=== PATIENT | female | born 1990 | race Caucasian/White ===

== ENCOUNTER 2017-11-23 03:54 | Inpatient (IN) | payer BC, OTHER ==
[2017-11-23] MEDS ORDERED: Metoclopramide 10 MG/2 ML SDV IVPUSH ONE (04:33)
[2017-11-23] MEDS ORDERED: Sodium Chloride 0.9% 10 ML Syringe FLUSH PRN ×2 (04:33→07:38)
[2017-11-23] MEDS ORDERED: Citric Acid/Sodium Citrate Solution 30 ML Cup PO ONE (04:33)
[2017-11-23] MEDS ORDERED: Ampicillin 2 GM in Sodium Chloride 0.9% 100 ML IV ONE (04:42)
[2017-11-23] MEDS ORDERED: Oxytocin/Lactated Ringers 10 UNIT/1,000 ML BAG IV SCH (04:45)
[2017-11-23] MEDS ORDERED: Lactated Ringers 1,000 ML IV SCH (04:45)
--- NOTE | 2017-11-23 05:59 | PCM.LDHP ---
L&D History of Present Illness - General Date of Service: 11/23/17 Admit Problem/Dx: Patient Status Order with Admit Dx/Problem 11/23/17 04:33 Patient Status [ADT] Routine Admission Diagnosis/Problem Admission Diagnosis/Problem Source of Information: Patient History Limitations: Reports: No Limitations - History of Present Illness Introduction:: 27-year-old 001 [place] 12/06/17 presently at 38 weeks and 2 days estimated gestational age presented to labor and delivery after spontaneous rupture membranes at 0245 hours clear fluid irregular contractions. GBS negative. Blood type B positive. Antibody screen negative. Initial hemoglobin hematocrit 14.2/ 41.106/19/17. Rubella titer indicates immunity. Syphilis screen negative. Hepatitis B surface antigen nonreactive negative HIV negative Chlamydia probe negative GC probe -1 hour OB glucose screen 130. 3 hour glucose tolerance test normal. Patient has had no problems during this except repeat section which had been planned for 11/30/17. Has been seeing Dr. Cartwright. Improves with: Reports: None Worsens with: Reports: None Associated Symptoms: Reports: N - Related Data Allergies/Adverse Reactions: Allergies Allergy/AdvReac Type Severity Reaction Status Date / Time ceftriaxone sodium Allergy Hives Verified 11/23/17 05:08 [From Rocephin] Home Medications: Home Meds Albuterol [Proventil Neb Soln] 3 ml NEB ASDIRECTED PRN 12/12/15 [History] Cetirizine HCl [Zyrtec] 10 mg PO DAILY 12/12/15 [History] Vit #76/Iron,Carb/Fa [Prenatabs Rx] 1 each PO DAILY 12/12/15 [History] Ranitidine HCl [Zantac 75] 75 mg PO DAILY 12/12/15 [History] Acetaminophen/oxyCODONE [Percocet 325-5 MG] 2 tab PO Q4H PRN #30 tablet [Rx] Docusate Sodium [Colace] 100 mg PO Q12H PRN #0 cap 12/15/15 [Rx] Ibuprofen [Motrin] 600 mg PO Q6H PRN #0 tablet 12/15/15 [Rx] Past Medical History Respiratory History: Reports: Asthma, Other (See Below) Other Respiratory History: uses inhalers and will bring in own med 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: , Other (See Below) Other OB/BYN History: prior Neurological History: Reports: Other (See Below) Other Neuro History: hx of migraines Psychiatric History: Reports: Addiction, Anxiety, Depression, Other (See Below) Other Psychiatric History: pt recieved tx for marijuana Hematologic History: Reports: Other (See Below) Other Hematologic History: see , pt states she had a high white count for her last preg - Past Surgical History Other HEENT Surgeries/Procedures: wisdom teeth removed Social & Family History - Family History Family Medical History: Noncontributory OBGYN: Reports: Other OBGYN Family History: mother - Tobacco Use Smoking Status *Q: Former Smoker (quit april 2015) Years of Tobacco use: 3 Used Tobacco, but Quit: Yes Month Tobacco Last Used: february 2015 Second Hand Smoke Exposure: No - Alcohol Use Days Per Week of Alcohol Use: 0 - Recreational Drug Use Recreational Drug Use: No H&P Review of Systems - Review of Systems: Review Of Systems: See Below General: Reports: No Symptoms HEENT: Reports: No Symptoms Pulmonary: Reports: No Symptoms Cardiovascular: Reports: No Symptoms Gastrointestinal: Reports: No Symptoms Genitourinary: Reports: No Symptoms Musculoskeletal: Reports: No Symptoms Skin: Reports: No Symptoms Psychiatric: Reports: No Symptoms Neurological: Reports: No Symptoms Hematologic/Lymphatic: Reports: No Symptoms Immunologic: Reports: No Symptoms L&D Exam - Exam Exam: See Below - Vital Signs Vital Signs: Last Vital Signs Temp 98.2 F 11/23/17 04:33 Pulse 88 11/23/17 04:33 Resp 18 11/23/17 04:33 BP 116/73 11/23/17 04:33 Pulse Ox 100 11/23/17 04:33 - OB Specific Fundal Height In cm: 38 Contraction Intensity: Mild to Moderate Movement: Active Heart Tones: Present Heart Tones per Min: 130 Heart Rate (FHR) Variability: Moderate (6-25 bmp) Presentation: Vertex - Kapoor Score Kapoor Score Cervix Position: Posterior Kapoor Score Consistency: Soft Kapoor Score Effacement: 51-70% Kapoor Score Dilation: 1-2 cm Kapoor Score Infant's Station: -2 Kapoor Score Total: 6 - Exam General: Alert, Oriented HEENT: Conjunctiva Clear, Mucosa Moist & [place], PERRLA Neck: Supple, Trachea Midline Lungs: Clear to Auscultation, Normal Respiratory Effort Cardiovascular: Regular Rate, Regular Rhythm GI/Abdominal Exam: Normal Bowel Sounds, Soft, Non-Tender, No Organomegaly, No Distention, No Abnormal Bruit, No Mass, Pelvis Stable Genitourinary: Normal external exam, Normal bimanual exam, Normal speculum exam Extremities: Normal Inspection, Normal Range of Motion, Non-Tender, No Pedal Edema, Normal Capillary Refill Skin: Warm, Dry, Intact Neurological: Cranial Nerves Intact, Reflexes Equal Bilateral Psychiatric: Alert, Normal Affect, Normal Mood - Patient Data Lab Results Last 24 hrs: Laboratory Results - last 24 hr 11/23/17 11/23/17 Range/Units 04:50 04:50 WBC 14.67 H (3.98-10.04) K/mm3 RBC 4.03 (3.98-5.22) M/mm3 Hgb 11.3 (11.2-15.7) gm/L Hct 34.1 (34.1-44.9) % MCV 84.6 (79.4-94.8) fl MCH 28.0 (25.6-32.2) pg MCHC 33.1 (32.2-35.5) g/dl RDW Std Deviation 44.8 (36.4-46.3) fL Plt Count 273 (182-369) K/mm3 MPV 10.3 (9.4-12.3) fl Blood Type B POSITIVE Result Diagrams: 11/23/17 04:50 - Problem List (1) 38 weeks gestation of SNOMED Code(s): 15007108 ICD Code: Z3A.38 - 38 WEEKS GESTATION OF Status: Acute Current Visit: Yes (2) delivery, delivered, current hospitalization SNOMED Code(s): 306696762 ICD Code: O82 - ENCOUNTER FOR DELIVERY WITHOUT INDICATION Status: Acute Current Visit: Yes Problem List Initiated/Reviewed/Updated: No Orders Last 24hrs: Active Orders 24 hr Category Date Time Status Patient Status [ADT] Routine ADT 11/23/17 04:33 Active Communication Order [RC] ROUTINE Care 11/23/17 04:33 Active Peripheral IV Care [RC] . DIRECTED Care 11/23/17 04:34 Active Procedure Site Prep Instruct [RC] ASDIRECTED Care 11/23/17 04:33 Active Urinary Catheter Assessment [RC] ASDIRECTED Care 11/23/17 04:33 Active Verify Patient Consent Obtain [RC] PER UNIT ROUTINE Care 11/23/17 04:33 Active Vital Signs [RC] PFP Care 11/23/17 04:33 Active Nothing Per Oral Diet [DIET] Diet 11/23/17 Breakfast Active TYPE AND SCREEN [BBK] Stat Lab 11/23/17 04:50 Results Lactated Ringers [Ringers, Lactated] 1,000 ml Med 11/23/17 04:45 Active IV ASDIRECTED Oxytocin/Lactated Ringers [Pitocin in LR 10 Units/1,000 Med 11/23/17 04:45 Active ML] 10 unit in 1,000 ml IV ASDIRECTED Sodium Chloride 0.9% [Saline Flush] Med 11/23/17 04:33 Active 10 ml FLUSH ASDIRECTED PRN Peripheral IV Insertion Adult [OM.PC] Routine Oth 11/23/17 04:33 Ordered Schedule Procedure [COMM] Per Unit Routine Oth 11/23/17 04:33 Ordered Resuscitation Status Routine Resus Stat 11/23/17 04:33 Ordered Medication Orders Lactated Ringer's (Ringers, Lactated) 1,000 mls @ 125 mls/hr IV ASDIRECTED GRAHAM Last Admin: 11/23/17 05:48 Dose: 125 mls/hr Oxytocin/Lactated Ringer's (Pitocin In Lr 10 Units/1,000 Ml) 10 unit in 1,000 mls @ 100 mls/hr IV ASDIRECTED GRAHAM Sodium Chloride (Saline Flush) 10 ml FLUSH ASDIRECTED PRN PRN Reason: Keep Vein Open Assessment/Plan Comment:: Plan repeat section
[2017-11-23] MEDS ORDERED: Morphine PF 1 MG/ML Amp ONE (06:03)
[2017-11-23] MEDS ORDERED: Bupivacaine 0.5% 30 ML SDV ONE (06:04)
[2017-11-23] MEDS ORDERED: Phenylephrine 1% 10 MG/ML SDV ONE (06:24)
[2017-11-23] MEDS ORDERED: ceFAZolin 1 GM Vial ONE (06:24)
[2017-11-23] MEDS ORDERED: Oxytocin 10 Units/1 ML SDV ONE ×2 (06:56→07:05)
[2017-11-23] MEDS ORDERED: Lactated Ringers 1,000 ML ONE ×2 (06:58)
[2017-11-23] MEDS ORDERED: Ketorolac 30 MG/ML SDV ONE (07:05)
[2017-11-23] MEDS ORDERED: Meperidine PF 50 MG/ML Syringe ONE (07:11)
[2017-11-23] MEDS ORDERED: diphenhydrAMINE 50 MG/ML SDV IVPUSH PRN ×2 (07:18→07:38)
[2017-11-23] MEDS ORDERED: fentaNYL 250 MCG/5 ML SDV IVPUSH PRN (07:18)
[2017-11-23] MEDS ORDERED: Meperidine PF 50 MG/ML Syringe IVPUSH ONE (07:19)
--- NOTE | 2017-11-23 07:21 | PCM.PREANE ---
Preanesthetic Assessment - Anesthesia/Transfusion/Family Hx Anesthesia History: Prior Anesthesia Without Reaction Family History of Anesthesia Reaction: No Transfusion History: No Prior Transfusion(s) - Review of Systems General: No Symptoms Pulmonary: No Symptoms Cardiovascular: No Symptoms Gastrointestinal: No Symptoms Neurological: No Symptoms Other: Reports: None - Physical Assessment NPO Status Date: 11/22/17 NPO Status Time: 20:00 Pulse: 107 O2 Sat by Pulse Oximetry: 100 Respiratory Rate: 18 Blood Pressure: 123/75 Temperature: 36.3 C Vital Signs: Last Vital Signs Temp 36.8 C 11/23/17 04:33 Pulse 88 11/23/17 04:33 Resp 18 11/23/17 04:33 BP 116/73 11/23/17 04:33 Pulse Ox 100 11/23/17 04:33 ASA Class: 2 Mental Status: Alert & Oriented x3 Airway Class: Mallampati = 1 Dentition: Reports: Normal Dentition ROM/Head Extension: Full Lungs: Clear to Auscultation, Normal Respiratory Effort Cardiovascular: Regular Rate, Regular Rhythm - Lab Values: Laboratory Last Values WBC 14.67 K/mm3 (3.98-10.04) H 11/23/17 04:50 RBC 4.03 M/mm3 (3.98-5.22) 11/23/17 04:50 Hgb 11.3 gm/L (11.2-15.7) 11/23/17 04:50 Hct 34.1 % (34.1-44.9) 11/23/17 04:50 MCV 84.6 fl (79.4-94.8) 11/23/17 04:50 MCH 28.0 pg (25.6-32.2) 11/23/17 04:50 MCHC 33.1 g/dl (32.2-35.5) 11/23/17 04:50 RDW Std Deviation 44.8 fL (36.4-46.3) 11/23/17 04:50 Plt Count 273 K/mm3 (182-369) 11/23/17 04:50 MPV 10.3 fl (9.4-12.3) 11/23/17 04:50 Blood Type B POSITIVE 11/23/17 04:50 Gel Antibody Screen Negative 11/23/17 04:50 - Allergies Allergies/Adverse Reactions: Allergies Allergy/AdvReac Type Severity Reaction Status Date / Time ceftriaxone sodium Allergy Hives Verified 11/23/17 05:08 [From Rocephin] - Acknowledgements Anesthesia Type Planned: Spinal Pt an Appropriate Candidate for the Planned Anesthesia: Yes Alternatives and Risks of Anesthesia Discussed w Pt/Guardian: Yes Pt/Guardian Understands and Agrees with Anesthesia Plan: Yes PreAnesthesia Questionnaire Respiratory History: Reports: Asthma, Other (See Below) Other Respiratory History: uses inhalers and will bring in own med Gastrointestinal History: Reports: GERD 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: , Other (See Below) Other OB/BYN History: prior Neurological History: Reports: Other (See Below) Other Neuro History: hx of migraines Psychiatric History: Reports: Addiction, Anxiety, Depression, Other (See Below) Other Psychiatric History: pt recieved tx for marijuana Hematologic History: Reports: Other (See Below) Other Hematologic History: see , pt states she had a high white count for her last preg - Past Surgical History Other HEENT Surgeries/Procedures: wisdom teeth removed - SUBSTANCE USE Smoking Status *Q: Former Smoker (quit april 2015) Tobacco Use Within Last Twelve Months: Cigarettes Second Hand Smoke Exposure: No Days Per Week of Alcohol Use: 0 Recreational Drug Use History: No Recreational Drug Type: Reports: Marijuana/Hashish - HOME MEDS Home Medications: Home Meds Albuterol [Proventil Neb Soln] 3 ml NEB ASDIRECTED PRN 12/12/15 [History] Cetirizine HCl [Zyrtec] 10 mg PO DAILY 12/12/15 [History] Vit #76/Iron,Carb/Fa [Prenatabs Rx] 1 each PO DAILY 12/12/15 [History] Ranitidine HCl [Zantac 75] 75 mg PO DAILY 12/12/15 [History] Acetaminophen/oxyCODONE [Percocet 325-5 MG] 2 tab PO Q4H PRN #30 tablet [Rx] Docusate Sodium [Colace] 100 mg PO Q12H PRN #0 cap 12/15/15 [Rx] Ibuprofen [Motrin] 600 mg PO Q6H PRN #0 tablet 12/15/15 [Rx] - CURRENT (IN HOUSE) MEDS Current Meds: Current Medications Diphenhydramine HCl (Benadryl) 25 mg IVPUSH Q6H PRN PRN Reason: Itching Fentanyl (Sublimaze) 50 mcg IVPUSH Q5M PRN PRN Reason: PAIN Lactated Ringer's (Ringers, Lactated) 1,000 mls @ 125 mls/hr IV ASDIRECTED [facility] Last Admin: 11/23/17 05:48 Dose: 125 mls/hr Oxytocin/Lactated Ringer's (Pitocin In Lr 10 Units/1,000 Ml) 10 unit in 1,000 mls @ 100 mls/hr IV ASDIRECTED [facility] Meperidine HCl (Demerol) 12.5 mg IVPUSH ONETIME ONE Stop: 11/23/17 07:20 Sodium Chloride (Saline Flush) 10 ml FLUSH ASDIRECTED PRN PRN Reason: Keep Vein Open Discontinued Medications Bupivacaine HCl (Marcaine 0.5%) Confirm Administered Dose 30 ml .ROUTE .STK-MED ONE Stop: 11/23/17 06:05 Cefazolin Sodium (Ancef) Confirm Administered Dose 2 gm .ROUTE .STK-MED ONE Stop: 11/23/17 06:25 Citric Acid/Sodium Citrate (Bicitra Solution) 30 ml PO ONETIME ONE Stop: 11/23/17 04:34 Last Admin: 11/23/17 05:56 Dose: 30 ml Ampicillin Sodium 2 gm/ Sodium (Chloride) 100 mls @ 200 mls/hr IV ONETIME ONE Stop: 11/23/17 05:11 Lactated Ringer's (Ringers, Lactated) Confirm Administered Dose 1,000 mls @ as directed .ROUTE .STK-MED ONE Stop: 11/23/17 06:59 Lactated Ringer's (Ringers, Lactated) Confirm Administered Dose 1,000 mls @ as directed .ROUTE .STK-MED ONE Stop: 11/23/17 06:59 Ketorolac Tromethamine (Toradol) Confirm Administered Dose 30 mg .ROUTE .STK- MED ONE Stop: 11/23/17 07:06 Meperidine HCl (Demerol) Confirm Administered Dose 50 mg .ROUTE .STK-MED ONE Stop: 11/23/17 07:12 Metoclopramide HCl (Reglan) 10 mg IVPUSH ONETIME ONE Stop: 11/23/17 04:34 Last Admin: 11/23/17 05:56 Dose: 10 mg Oxytocin (Pitocin) Confirm Administered Dose 10 [facility]: 11/23/17 06:57 Oxytocin (Pitocin) Confirm Administered Dose 10 unit [facility] Stop: 11/23/17 07:06 Phenylephrine HCl (Enrique-Synephrine) Confirm Administered Dose 10 mg .ROUTE .[facility] ONE Stop: 11/23/17 06:25
--- NOTE | 2017-11-23 07:26 | PCM.OPNOTE ---
- General Post-Op/Procedure Note Date of Surgery/Procedure: 11/23/17 Operative Procedure(s): Repeat low segment transverse Pre Op Diagnosis: 38+ weeks estimated gestational age, previous section , premature rupture membranes with onset of labor within 24 hours Post-Op Diagnosis: Same Anesthesia Technique: Spinal Primary Surgeon: Deejay Ring Secondary Surgeon: Elmo Sheldon Jr Anesthesia Provider: Sd De La O Reason Power Superintendent Was Necessary: Asst. difficult surgery, decrease comorbidity and co-mortality, retraction of tissue for visibility for surgery, decrease operating time Role of Power Superintendent: Asst. difficult surgery, decrease comorbidity and co-mortality, retraction of tissue for visibility for surgery, decrease operating time Fluid Replacement, Intraop: 2,200 Output, Urine Amount: 100 EBL in mLs: 400 Drain/Tube Comments:: Hernandez Complications: None Condition: Good Free Text/Narrative:: Patient was transported to operating room #1 and placed under spinal anesthesia in the supine position with a wedge under the right hip and right flank. SCDs in place and functioning prior surgery. Patient received 2 g of Ancef prior surgery. Timeout performed confirming name, date of and procedure as repeat section. Patient prepared and draped in a sterile fashion. Adequate level of anesthesia was confirmed, patient's was brought to the operating room. The area of the planned incision was marked to remove the old scar. Prior to beginning the incision milliliters of 0.5% Marcaine injected in the area of the planned incision to decrease postoperative pain. Pfannenstiel incision was made removing the old scar and carrying the incision to and through the anterior fascia in transverse fashion. Peritoneal cavity entered without difficulty. Bladder flap created pushed caudad. A low segment transverse was performed with amnionic fluid clear upon entry into the amnionic cavity. The head was delivered with the assistance of vacuum extractor 2 in the green for less than 15 seconds. The cord was clamped cut and handed to Dr. Mixon credit rating inspector. The female liveborn was delivered on Thursday11/23/2017 at 0643 hrs. Weight 30/1/10 grams/6 lbs. 14 oz. Apgars 9/9. Cord blood was collected from three-vessel cord. Placenta was removed manually and inspected and discarded. The endometrial cavity was inspected cervical patency was assured. Sponge needle pack instrument sharp count correct times one and the uterine incision was closed with #0 Monocryl in 2 layers first layer running locking suture second layer horizontal imbricating suture modified Lembert type. Hemostasis was normal. Both tubes and ovaries appeared normal clot screen from the gutters and cul-de-sac, the uterus was replaced into the abdominal cavity. The uterine incision was reinspected no bleeding. Sponge needle pack asthma sharp count correct 2. The anterior fascia was closed with #1 PDS running suture. Irrigation was carried out with 250 mL of saline. Subcutaneous tissue was incised with the Bovie to assist in closure of the subcutaneous tissue. The subcutaneous tissue was then closed with 0 Monocryl interrupted 3. The skin was closed with subcuticular stitch of 3-0 Monocryl Perez needle. Dermabond Marianela applied. cleaned from the vagina at the end of the procedure. No blood transfusions were required. Patient was transported postanesthesia care unit in satisfactory condition.
[2017-11-23] MEDS ORDERED: ePHEDrine 50 MG/ML SDV IVPUSH PRN (07:38)
[2017-11-23] MEDS ORDERED: Dextrose 5%-Lactated Ringers 1,000 ML IV SCH (07:38)
[2017-11-23] MEDS ORDERED: Lanolin 100% Cream 7 GM Tube TOP PRN (07:38)
[2017-11-23] MEDS ORDERED: Docusate Sodium 100 MG Cap PO PRN (07:38)
[2017-11-23] MEDS ORDERED: Ondansetron 4 MG/2 ML SDV IV PRN (07:38)
[2017-11-23] MEDS ORDERED: Naloxone 0.4 MG/ML SDV IVPUSH PRN (07:38)
[2017-11-23] MEDS ORDERED: Acetaminophen 325 MG Tab PO PRN (07:38)
[2017-11-23] MEDS ORDERED: Loratadine 10 MG Tab PO SCH (09:00)
[2017-11-23] MEDS: Simethicone 80 MG Tab.Chew PO SCH ×4 (09:08→21:45)
[2017-11-23] MEDS ORDERED: Albuterol 0.083% 2.5 MG/3 ML Neb Soln INH PRN (10:00)
[2017-11-23] MEDS: Acetaminophen/oxyCODONE 325-5 MG Tab PO PRN ×3 (11:47→23:18)
[2017-11-23] MEDS: Ketorolac 30 MG/ML SDV IVPUSH SCH ×2 (12:46→18:39)
[2017-11-23] MEDS ORDERED: Budesonide/Formoterol 80-4.5 MCG/Puff 6.9 GM Inhaler INH SCH (18:00)
[2017-11-23] MEDS ORDERED: Famotidine 20 MG Tab PO SCH (21:00)
[2017-11-23] MEDS: FORMOTEROL INH SCH (21:46)
[2017-11-23] MEDS: BUDESONIDE INH SCH (21:46)
[2017-11-23] MEDS: Montelukast 10 MG Tab PO SCH (21:46)
[2017-11-24] MEDS: Ketorolac 30 MG/ML SDV IVPUSH SCH (01:12)
[2017-11-24] MEDS: Acetaminophen/oxyCODONE 325-5 MG Tab PO PRN ×5 (03:37→21:54)
--- NOTE | 2017-11-24 06:54 | PCM.SN ---
- Free Text/Narrative Note: day one/postop day 1 Afebrile, incision normal uterus involuting normally, no heavy vaginal bleeding no leg cramping. Probably home tomorrow.
[2017-11-24] MEDS: Simethicone 80 MG Tab.Chew PO SCH ×4 (08:30→21:54)
--- NOTE | 2017-11-24 08:55 | PCM48HPAN ---
Post Anesthesia Note - EVALUATION WITHIN 48HRS OF ANESTHETIC Vital Signs in Normal Range: Yes Patient Participated in Evaluation: Yes Respiratory Function Stable: Yes Airway Patent: Yes Cardiovascular Function Stable: Yes Hydration Status Stable: Yes Pain Control Satisfactory: Yes Nausea and Vomiting Control Satisfactory: Yes Mental Status Recovered: Yes
[2017-11-24] MEDS: Ibuprofen 600 MG Tab PO PRN ×2 (09:20→20:11)
[2017-11-24] MEDS: FORMOTEROL INH SCH (21:55)
[2017-11-24] MEDS: Montelukast 10 MG Tab PO SCH (21:55)
[2017-11-24] MEDS: BUDESONIDE INH SCH (21:55)
[2017-11-25] MEDS: Acetaminophen/oxyCODONE 325-5 MG Tab PO PRN ×2 (01:46→06:34)
[2017-11-25 04:48] VITALS: BP 116/70
--- NOTE | 2017-11-25 06:35 | PCM.DCSUM1 ---
Discharge Summary - Hospital Course Free Text/Narrative:: [facility] Post-Op/Procedure Note Patient Name: BEATRIZ MARSH Date of : 89 Patient Status: Inpatient Attending Provider: Deejay Ring Date: 11/23/17 07:19 Initialization Date: 11/23/17 07:19 - General Post-Op/Procedure Note Date of Surgery/Procedure: 11/23/17 Operative Procedure(s): Repeat low segment transverse Pre Op Diagnosis: 38+ weeks estimated gestational age, previous section , premature rupture membranes with onset of labor within 24 hours Post-Op Diagnosis: Same Anesthesia Technique: Spinal Primary Surgeon: Deejay Ring Secondary Surgeon: Elmo Sheldon Jr Anesthesia Provider: Sd De La O Reason Lathe Spotter Was Necessary: Asst. difficult surgery, decrease comorbidity and co-mortality, retraction of tissue for visibility for surgery, decrease operating time Role of Lathe Spotter: Asst. difficult surgery, decrease comorbidity and co-mortality, retraction of tissue for visibility for surgery, decrease operating time Fluid Replacement, Intraop: 2,200 Output, Urine Amount: 100 EBL in mLs: 400 Drain/Tube Comments:: Hernandez Complications: None Condition: Good Free Text/Narrative:: Patient was transported to operating room #1 and placed under spinal anesthesia in the supine position with a wedge under the right hip and right flank. SCDs in place and functioning prior surgery. Patient received 2 g of Ancef prior surgery. Timeout performed confirming name, date of and procedure as repeat section. Patient prepared and draped in a sterile fashion. Adequate level of anesthesia was confirmed, patient's was brought to the operating room. The area of the planned incision was marked to remove the old scar. Prior to beginning the incision milliliters of 0.5% Marcaine injected in the area of the planned incision to decrease postoperative pain. Pfannenstiel incision was made removing the old scar and carrying the incision to and through the anterior fascia in transverse fashion. Peritoneal cavity entered without difficulty. Bladder flap created pushed caudad. A low segment transverse was performed with amnionic fluid clear upon entry into the amnionic cavity. The head was delivered with the assistance of vacuum extractor 2 in the green for less than 15 seconds. The cord was clamped cut and handed to Dr. Mixon farm mortgage agent. The female liveborn was delivered on Thursday11/23/2017 at 0643 hrs. Weight 30/1/10 grams/6 lbs. 14 oz. Apgars 9/9. Cord blood was collected from three-vessel cord. Placenta was removed manually and inspected and discarded. The endometrial cavity was inspected cervical patency was assured. Sponge needle pack instrument sharp count correct times one and the uterine incision was closed with #0 Monocryl in 2 layers first layer running locking suture second layer horizontal imbricating suture modified Lembert type. Hemostasis was normal. Both tubes and ovaries appeared normal clot screen from the gutters and cul-de-sac, the uterus was replaced into the abdominal cavity. The uterine incision was reinspected no bleeding. Sponge needle pack asthma sharp count correct 2. The anterior fascia was closed with #1 PDS running suture. Irrigation was carried out with 250 mL of saline. Subcutaneous tissue was incised with the Bovie to assist in closure of the subcutaneous tissue. The subcutaneous tissue was then closed with 0 Monocryl interrupted 3. The skin was closed with subcuticular stitch of 3-0 Monocryl Perez needle. Dermabond Prenaliciao applied. cleaned from the vagina at the end of the procedure. No blood transfusions were required. Patient was transported postanesthesia care unit in satisfactory condition. Additional CC's: Michelle Cartwright [facility] Initial Comments: [facility] Post-Op/Procedure Note Patient Name: BEATRIZ MARSH Date of : 89 Patient Status: Inpatient Attending Provider: Deejay Ring Date: 11/23/17 07:19 Initialization Date: 11/23/17 07:19 - General Post-Op/Procedure Note Date of Surgery/Procedure: 11/23/17 Operative Procedure(s): Repeat low segment transverse Pre Op Diagnosis: 38+ weeks estimated gestational age, previous section , premature rupture membranes with onset of labor within 24 hours Post-Op Diagnosis: Same Anesthesia Technique: Spinal Primary Surgeon: Deejay Ring Secondary Surgeon: Elmo Sheldon Jr Anesthesia Provider: Sd De La O Reason Lathe Spotter Was Necessary: Asst. difficult surgery, decrease comorbidity and co-mortality, retraction of tissue for visibility for surgery, decrease operating time Role of Lathe Spotter: Asst. difficult surgery, decrease comorbidity and co-mortality, retraction of tissue for visibility for surgery, decrease operating time Fluid Replacement, Intraop: 2,200 Output, Urine Amount: 100 EBL in mLs: 400 Drain/Tube Comments:: Hernandez Complications: None Condition: Good Free Text/Narrative:: Patient was transported to operating room #1 and placed under spinal anesthesia in the supine position with a wedge under the right hip and right flank. SCDs in place and functioning prior surgery. Patient received 2 g of Ancef prior surgery. Timeout performed confirming name, date of and procedure as repeat section. Patient prepared and draped in a sterile fashion. Adequate level of anesthesia was confirmed, patient's was brought to the operating room. The area of the planned incision was marked to remove the old scar. Prior to beginning the incision milliliters of 0.5% Marcaine injected in the area of the planned incision to decrease postoperative pain. Pfannenstiel incision was made removing the old scar and carrying the incision to and through the anterior fascia in transverse fashion. Peritoneal cavity entered without difficulty. Bladder flap created pushed caudad. A low segment transverse was performed with amnionic fluid clear upon entry into the amnionic cavity. The head was delivered with the assistance of vacuum extractor 2 in the green for less than 15 seconds. The cord was clamped cut and handed to Dr. Mixon farm mortgage agent. The female liveborn was delivered on Thursday11/23/2017 at 0643 hrs. Weight 30/1/10 grams/6 lbs. 14 oz. Apgars 9/9. Cord blood was collected from three-vessel cord. Placenta was removed manually and inspected and discarded. The endometrial cavity was inspected cervical patency was assured. Sponge needle pack instrument sharp count correct times one and the uterine incision was closed with #0 Monocryl in 2 layers first layer running locking suture second layer horizontal imbricating suture modified Lembert type. Hemostasis was normal. Both tubes and ovaries appeared normal clot screen from the gutters and cul-de-sac, the uterus was replaced into the abdominal cavity. The uterine incision was reinspected no bleeding. Sponge needle pack asthma sharp count correct 2. The anterior fascia was closed with #1 PDS running suture. Irrigation was carried out with 250 mL of saline. Subcutaneous tissue was incised with the Bovie to assist in closure of the subcutaneous tissue. The subcutaneous tissue was then closed with 0 Monocryl interrupted 3. The skin was closed with subcuticular stitch of 3-0 Monocryl Perez needle. Dermabond Preneo applied. cleaned from the vagina at the end of the procedure. No blood transfusions were required. Patient was transported postanesthesia care unit in satisfactory condition. Additional CC's: Michelle Cartwright Brief History: [facility] . Post-Op/Procedure Note. Patient Name: ODESSA MARSHedical Record Number: [id number]. Date of : [birth year]Patient Status: Inpatient. Attending Provider: Deejay Ring Number: [id number]. Date: 11/23/17 07:19Initialization Date: 11/23/17 07:19. - General Post-Op/Procedure Note. Date of Surgery/Procedure: 11/23/17. Operative Procedure(s): Repeat low segment transverse . Pre Op Diagnosis: 38+ weeks estimated gestational age, previous section, premature rupture membranes with onset of labor within 24 hours. Post-Op Diagnosis: Same. Anesthesia Technique: Spinal. Primary Surgeon: Deejay Ring. Secondary Surgeon: Elmo Sheldon Jr. Anesthesia Provider: Sd De La O. Reason Lathe Spotter Was Necessary: Asst. difficult surgery, decrease comorbidity and co-mortality, retraction of tissue for visibility for surgery, decrease operating time. Role of Lathe Spotter: Asst. difficult surgery, decrease comorbidity and co-mortality, retraction of tissue for visibility for surgery, decrease operating time. Fluid Replacement, Intraop: 2,200. Output, Urine Amount: 100. EBL in mLs: 400. Drain/Tube Comments:: Hernandez. Complications: None. Condition: Good. Free Text/Narrative:: Patient was transported to operating room #1 and placed under spinal anesthesia in the supine position with a wedge under the right hip and right flank. SCDs in place and functioning prior surgery. Patient received 2 g of Ancef prior surgery. Timeout performed confirming name, date of and procedure as repeat section. Patient prepared and draped in a sterile fashion. Adequate level of anesthesia was confirmed, patient's was brought to the operating room. The area of the planned incision was marked to remove the old scar. Prior to beginning the incision milliliters of 0.5% Marcaine injected in the area of the planned incision to decrease postoperative pain. Pfannenstiel incision was made removing the old scar and carrying the incision to and through the anterior fascia in transverse fashion. Peritoneal cavity entered without difficulty. Bladder flap created pushed caudad. A low segment transverse was performed with amnionic fluid clear upon entry into the amnionic cavity. The head was delivered with the assistance of vacuum extractor 2 in the green for less than 15 seconds. The cord was clamped cut and handed to Dr. Mixon [employer] mortgage agent. The female liveborn was delivered on Thursday11/23/2017 at 0643 hrs. Weight 30/1/10 grams/6 lbs. 14 oz. Apgars 9/9. Cord blood was collected from three-vessel cord. Placenta was removed manually and inspected and discarded. The endometrial cavity was inspected cervical patency was assured. Sponge needle pack instrument sharp count correct times one and the uterine incision was closed with #0 Monocryl in 2 layers first layer running locking suture second layer horizontal imbricating suture modified Lembert type. Hemostasis was normal. Both tubes and ovaries appeared normal clot screen from the gutters and cul-de-sac, the uterus was replaced into the abdominal cavity. The uterine incision was reinspected no bleeding. Sponge needle pack asthma sharp count correct 2. The anterior fascia was closed with #1 PDS running suture. Irrigation was carried out with 250 mL of saline. Subcutaneous tissue was incised with the Bovie to assist in closure of the subcutaneous tissue. The subcutaneous tissue was then closed with 0 Monocryl interrupted 3. The skin was closed with subcuticular stitch of 3-0 Monocryl Perez needle. Dermabond Marianela applied. cleaned from the vagina at the end of the procedure. No blood transfusions were required. Patient was transported postanesthesia care unit in satisfactory condition. Additional CC's: Michelle Cartwright - Discharge Data Discharge Date: 11/25/17 Discharge Disposition: Home, Self-Care 01 Condition: Good - Discharge Diagnosis/Problem(s) (1) 38 weeks gestation of SNOMED Code(s): 68286897 ICD Code: Z3A.38 - 38 WEEKS GESTATION OF Status: Acute Current Visit: Yes (2) delivery, delivered, current hospitalization SNOMED Code(s): 072567801 ICD Code: O82 - ENCOUNTER FOR DELIVERY WITHOUT INDICATION Status: Acute Current Visit: Yes - Patient Summary/Data Operative Procedure(s) Performed: Repeat low segment transverse Complications: None Consults: None Hospital Course: Uneventful - Patient Instructions Diet: Regular Diet as Tolerated Driving: Do Not Drive (2 weeks) Showering/Bathing: May Shower, No Tub Bathing/Swimming (6 weeks) Wound/Incision Care: Keep Operative Site/Wound Site Clean and Dry Notify Provider of: Fever, Increased Pain, Swelling and Redness, Drainage, Nausea and/or Vomiting - Discharge Plan Home Medications: Home Meds Albuterol [Proventil Neb Soln] 3 ml NEB ASDIRECTED PRN 12/12/15 [History] Vit #76/Iron,Carb/Fa [Prenatabs Rx] 1 each PO DAILY 12/12/15 [History] Docusate Sodium [Colace] 100 mg PO Q12H PRN #0 cap 12/15/15 [Rx] Acetaminophen [Tylenol] 650 mg PO Q4H PRN tablet 11/25/17 [Rx] Acetaminophen/oxyCODONE [Percocet 325-5 MG] 1 tab PO Q6H PRN #25 tablet [Rx] Ibuprofen [IJD: Ibuprofen] 600 mg PO Q6H PRN tablet 11/25/17 [Rx] Lanolin [Lansinoh HPA] 1 applic TOP ASDIRECTED PRN tube 11/25/17 [Rx] Simethicone 80 mg PO PCBED tab.chew 11/25/17 [Rx] Referrals: Michelle Cartwright MD [Physician] - (2 weeks) - Discharge Summary/Plan Comment DC Time >30 min.: No - Patient Data Vitals - Most Recent: Last Vital Signs Temp 98.2 F 11/25/17 04:46 Pulse 79 11/25/17 04:46 Resp 1 L 11/25/17 04:46 BP 116/70 11/25/17 04:46 Pulse Ox 100 11/25/17 04:46 Weight - Most Recent: 172 lb I&O - Last 24 hours: Intake & Output 11/24/17 11/24/1711/25/18 14:59 22:59 06:59 Intake Total 240 Output Total 350 Balance -110 Lab Results - Last 24 hrs: Laboratory Results - last 24 hr 11/24/17 Range/Units 06:05 WBC 16.82 H (3.98-10.04) K/mm3 RBC 3.57 L (3.98-5.22) M/mm3 Hgb 10.0 L (11.2-15.7) gm/L Hct 30.7 L (34.1-44.9) % MCV 86.0 (79.4-94.8) fl MCH 28.0 (25.6-32.2) pg MCHC 32.6 (32.2-35.5) g/dl RDW Std Deviation 44.7 (36.4-46.3) fL Plt Count 239 (182-369) K/mm3 MPV 10.6 (9.4-12.3) fl Neut % (Auto) 77.8 H (34.0-71.1) % Lymph % (Auto) 11.2 L (19.3-51.7) % Hidalgo % (Auto) 6.2 (4.7-12.5) % Eos % (Auto) 4.2 (0.7-5.8) Baso % (Auto) 0.2 (0.1-1.2) % Neut # (Auto) 13.08 H (1.56-6.13) K/mm3 Lymph # (Auto) 1.89 (1.18-3.74) K/mm3 Hidalgo # (Auto) 1.04 H (0.24-0.36) K/mm3 Eos # (Auto) 0.71 H (0.04-0.36) K/mm3 Baso # (Auto) 0.04 (0.01-0.08) K/mm3 Manual Slide Review Not Reportable Med Orders - Current: Current Medications Acetaminophen (Tylenol) 650 mg PO Q4H PRN PRN Reason: mild pain or fever Albuterol (Proventil Neb Soln) 2.5 mg INH ASDIRECTED PRN PRN Reason: ASTHAM Budesonide/Formoterol Fumarate (Symbicort 80-4.5 Mcg) 0 gm INH BEDTIME [facility] Last Admin: 11/24/17 21:55 Dose: 2 puff Diphenhydramine HCl (Benadryl) 25 mg IVPUSH Q6H PRN PRN Reason: Itching or Nausea Docusate Sodium (Colace) 100 mg PO Q12H PRN PRN Reason: Constipation Emollient Ointment (Lansinoh Hpa) 0 gm TOP ASDIRECTED PRN PRN Reason: Sore Nipples Last Admin: 11/23/17 10:08 Dose: 1 applic Ephedrine Sulfate (Ephedrine Sulfate) 5 mg IVPUSH SEECOMMENT PRN PRN Reason: Other Ibuprofen (Motrin) 600 mg PO Q6H PRN PRN Reason: mild pain or fever Last Admin: 11/24/17 20:11 Dose: 600 mg Montelukast Sodium (Singulair) 10 mg PO BEDTIME [facility] Last Admin: 11/24/17 21:55 Dose: 10 mg Naloxone HCl (Narcan) 0.1 mg IVPUSH SEECOMMENT PRN PRN Reason: Respiratory Depression Ondansetron HCl (Zofran) 4 mg IV Q8H PRN PRN Reason: Nausea/Vomiting Oxycodone/Acetaminophen (Percocet 325-5 Mg) 1 tab PO Q4H PRN PRN Reason: Pain (moderate 4-6) Last Admin: 11/25/17 01:46 Dose: 1 tab Simethicone (Simethicone) 80 mg PO PCBED [facility] Last Admin: 11/24/17 21:54 Dose: 80 mg Sodium Chloride (Saline Flush) 10 ml FLUSH ASDIRECTED PRN PRN Reason: Keep Vein Open Discontinued Medications Budesonide/Formoterol Fumarate (Symbicort 80-4.5 Mcg) 0 gm INH QPM [facility] Last Admin: 11/23/17 21:34 Dose: Not Given Bupivacaine HCl (Marcaine 0.5%) Confirm Administered Dose 30 ml .ROUTE .STK-MED ONE Stop: 11/23/17 06:05 Last Admin: 11/23/17 06:38 Dose: 20 ml Cefazolin Sodium (Ancef) Confirm Administered Dose 2 gm .ROUTE .STK-MED ONE Stop: 11/23/17 06:25 Citric Acid/Sodium Citrate (Bicitra Solution) 30 ml PO ONETIME ONE Stop: 11/23/17 04:34 Last Admin: 11/23/17 05:56 Dose: 30 ml Diphenhydramine HCl (Benadryl) 25 mg IVPUSH Q6H PRN PRN Reason: Itching Famotidine (Pepcid) 20 mg PO BEDTIME [facility] Last Admin: 11/23/17 20:26 Dose: Not Given Fentanyl (Sublimaze) 50 mcg IVPUSH Q5M PRN PRN Reason: PAIN Lactated Ringer's (Ringers, Lactated) 1,000 mls @ 125 mls[facility]hr [facility] Last Admin: 11/23/17 05:48 Dose: 125 mls/hr Oxytocin/Lactated Ringer's (Pitocin In Lr 10 Units/1,000 Ml) 10 unit in 1,000 mls @ 100 mls/hr IV [facility] Ampicillin Sodium 2 gm/ Sodium (Chloride) 100 mls @ 200 mls/hr IV ONETIME ONE Stop: 11/23/17 05:11 Last Admin: 11/23/17 07:53 Dose: Not Given Lactated Ringer's (Ringers, Lactated) Confirm Administered Dose 1,000 mls @ as directed .ROUTE .[facility] ONE Stop: 11/23/17 06:59 Lactated Ringer's (Ringers, Lactated) Confirm Administered Dose 1,000 mls @ as directed .ROUTE .[facility] Stop: 11/23/17 06:59 Dextrose/Lactated Ringer's (Dextrose 5%-Lactated Ringers) 1,000 mls @ 125 mls/ hr IV [facility] Stop: 11/23/17 15:37 Last Admin: 11/23/17 09:41 Dose: 125 mls/hr Ketorolac Tromethamine (Toradol) Confirm Administered Dose 30 mg .ROUTE .[facility] ONE Stop: 11/23/17 07:06 Ketorolac Tromethamine (Toradol) 30 mg IVPUSH Q6H [facility] Stop: 11/24/17 01:01 Last Admin: 11/24/17 01:12 Dose: 30 mg Loratadine (Claritin) 10 mg PO DAILY [facility] Last Admin: 11/23/17 10:20 Dose: Not Given Meperidine HCl (Demerol) Confirm Administered Dose 50 mg .ROUTE .[facility] ONE Stop: 11/23/17 07:12 Last Admin: 11/23/17 08:26 Dose: Not Given Meperidine HCl (Demerol) 12.5 mg IVPUSH ONETIME ONE Stop: 11/23/17 07:20 Last Admin: 11/23/17 07:20 Dose: 12.5 mg Metoclopramide HCl (Reglan) 10 mg IVPUSH ONETIME ONE Stop: 11/23/17 04:34 Last Admin: 11/23/17 05:56 Dose: 10 mg Morphine Sulfate (Duramorph Pf) Confirm Administered Dose 1 mg .ROUTE .STK-MED ONE Stop: 11/23/17 06:04 Oxytocin (Pitocin) Confirm Administered Dose 10 unit .ROUTE .STK-MED ONE Stop: 11/23/17 06:57 Oxytocin (Pitocin) Confirm Administered Dose 10 unit .ROUTE .STK-MED ONE Stop: 11/23/17 07:06 Phenylephrine HCl (Enrique-Synephrine) Confirm Administered Dose 10 mg .ROUTE .STK- MED ONE Stop: 11/23/17 06:25 Sodium Chloride (Saline Flush) 10 ml FLUSH ASDIRECTED PRN PRN Reason: Keep Vein Open *Q Meaningful Use (DIS) - VTE *Q VTE Criteria *Q: - Stroke *Q Stroke Criteria *Q: - AMI *Q AMI Criteria *Q:
== END 2017-11-25 09:36 | disposition home or self-care (01) | DRG 766 ==
LOC: JD.OB 03:54 → OBSVTOIN 04:33 → JD.OB 04:33
PROVIDERS: ADMIT Obstetrics & Gynecology; ATTEND Obstetrics & Gynecology
PROC: 10D00Z1 Extraction of Products of Conception, Low, Open Approach (ICD-10-PCS; principal; 2017-11-23)
DX: O42.02 Full-term premature rupture of membranes, onset of labor within 24 hours of rupture (principal); Z37.0 Single live birth; Z3A.38 38 weeks gestation of pregnancy; O34.211 Maternal care for low transverse scar from previous cesarean delivery; N85.8 Other specified noninflammatory disorders of uterus; Z88.1 Allergy status to other antibiotic agents; O99.52 Diseases of the respiratory system complicating childbirth; J45.909 Unspecified asthma, uncomplicated; Z87.891 Personal history of nicotine dependence; Z79.899 Other long term (current) drug therapy
CPT/HCPCS: 01961; 36415; 85025; 85027; 86850; 86900; 86901; A9270-GY; J0690; J1885; J2175; J2274; J2370; J2590; J2765; J7042; J7120

== ENCOUNTER 2022-10-21 14:06 | Inpatient (IN) | payer BC ==
[2022-10-21] MEDS ORDERED: Sodium Chloride 0.9% 10 ML Syringe FLUSH PRN (16:07)
[2022-10-21] MEDS ORDERED: Citric Acid/Sodium Citrate Solution 30 ML Cup PO ONE (16:07)
[2022-10-21] MEDS ORDERED: ceFAZolin 2 GM in Sodium Chloride 0.9% 50 ML IV ONE ×2 (16:07→16:31)
[2022-10-21] MEDS ORDERED: Metoclopramide 10 MG/2 ML SDV IVPUSH ONE (16:07)
[2022-10-21] MEDS ORDERED: Lactated Ringers 1,000 ML IV SCH (16:15)
[2022-10-21] MEDS ORDERED: Oxytocin/Lactated Ringers 10 UNIT/1,000 ML BAG IV SCH (16:15)
[2022-10-21] MEDS ORDERED: fentaNYL 100 MCG/2 ML SDV ONE (16:53)
[2022-10-21] MEDS ORDERED: Morphine PF 10 MG/10 ML SDV ONE (16:53)
[2022-10-21] MEDS ORDERED: ceFAZolin 2 GM Vial ONE (16:56)
[2022-10-21] MEDS ORDERED: Dexmedetomidine 200 MCG/2 ML SDV ONE (16:58)
[2022-10-21] MEDS ORDERED: Ondansetron 4 MG/2 ML SDV IVPUSH PRN (17:00)
[2022-10-21] MEDS ORDERED: diphenhydrAMINE 50 MG/ML SDV IVPUSH PRN ×2 (17:00→19:44)
[2022-10-21] MEDS ORDERED: fentaNYL 100 MCG/2 ML SDV IVPUSH PRN (17:00)
[2022-10-21] MEDS ORDERED: Lactated Ringers 1,000 ML ONE ×2 (17:17→17:53)
[2022-10-21] MEDS ORDERED: Phenylephrine HCl In 0.9% NaCl 1 MG/10 ML Vial ONE ×2 (17:23→17:45)
[2022-10-21] MEDS ORDERED: Oxytocin 10 Units/1 ML SDV ONE ×2 (17:33→17:53)
[2022-10-21] MEDS ORDERED: Methylergonovine 0.2 MG/1 ML Amp ONE (17:37)
[2022-10-21] MEDS ORDERED: Ondansetron 4 MG/2 ML SDV ONE (17:56)
[2022-10-21] MEDS ORDERED: Ketorolac 30 MG/ML SDV ONE (17:56)
[2022-10-21] MEDS ORDERED: Naloxone 0.4 MG/ML SDV IVPUSH PRN (19:44)
[2022-10-21] MEDS ORDERED: Dextrose 5%-Lactated Ringers 1,000 ML IV SCH (19:44)
[2022-10-21] MEDS ORDERED: ePHEDrine 50 MG/ML SDV IVPUSH PRN (19:44)
[2022-10-21] MEDS ORDERED: Ondansetron 4 MG/2 ML SDV IV PRN (19:44)
[2022-10-21] MEDS ORDERED: Sodium Chloride 0.9% 10 ML Syringe FLUSH SCH (21:00)
[2022-10-22] MEDS: Ketorolac 30 MG/ML SDV IVPUSH SCH ×3 (05:55→11:54)
[2022-10-22] MEDS: Acetaminophen/oxyCODONE 325-5 MG Tab PO PRN ×3 (12:09→23:25)
[2022-10-22] MEDS: FLUoxetine 20 MG Cap PO SCH (12:17)
[2022-10-22] MEDS: Docusate Sodium 100 MG Cap PO PRN (15:49)
[2022-10-22] MEDS: Simethicone 80 MG Tab.Chew PO SCH ×3 (16:45→21:15)
[2022-10-22] MEDS ORDERED: Ibuprofen 600 MG Tab PO PRN (18:01)
[2022-10-23] MEDS: Acetaminophen/oxyCODONE 325-5 MG Tab PO PRN ×3 (05:03→13:44)
[2022-10-23] MEDS: Simethicone 80 MG Tab.Chew PO SCH ×3 (07:21→17:13)
[2022-10-23] MEDS: Docusate Sodium 100 MG Cap PO PRN (08:20)
[2022-10-23] MEDS: FLUoxetine 20 MG Cap PO SCH (08:21)
[2022-10-23 15:03] VITALS: BP 110/68; PULSE 67
[2022-10-23] MEDS ORDERED: Sodium Chloride 0.9% 10 ML Syringe FLUSH ONE (16:20)
[2022-10-23] MEDS ORDERED: Iopamidol 612 MG/ML 100 ML Bottle IVPUSH ONE (16:20)
[2022-10-23] MEDS ORDERED: Sodium Chloride 0.9% 100 ML IV SCH (16:30)
[2022-10-23] MEDS ORDERED: Morphine 2 MG/ML SYRINGE IVPUSH ONE (18:30)
== END 2022-10-23 19:15 | disposition home or self-care (01) | DRG 540 ==
LOC: JD.OBCHECK 14:06 → JD.OB 14:11 → JD.OBCHECK 16:07
PROVIDERS: ADMIT Obstetrics & Gynecology; ATTEND Obstetrics & Gynecology
PROC: 10D00Z1 Extraction of Products of Conception, Low, Open Approach (ICD-10-PCS; principal; 2022-10-21)
DX: O34.211 Maternal care for low transverse scar from previous cesarean delivery (principal); Z37.0 Single live birth; Z3A.38 38 weeks gestation of pregnancy; O72.1 Other immediate postpartum hemorrhage; N99.81 Other intraoperative complications of genitourinary system; S37.20XA Unspecified injury of bladder, initial encounter; Z88.1 Allergy status to other antibiotic agents; O99.52 Diseases of the respiratory system complicating childbirth; O99.344 Other mental disorders complicating childbirth; O99.62 Diseases of the digestive system complicating childbirth; Z87.891 Personal history of nicotine dependence; J45.909 Unspecified asthma, uncomplicated; K21.9 Gastro-esophageal reflux disease without esophagitis; F41.9 Anxiety disorder, unspecified; F32.A Depression, unspecified
CPT/HCPCS: 01961; 36415; 51702; 51798; 59025; 72193; 72193-26; 81001; 85025; 85027; 86592; 86850; 86900; 86901; 94762; 99140; A9270-GY; J0690; J1885; J2210; J2270; J2274; J2405; J2590; J2765; J3010; J3490; J7120; J7121; Q9967

== ENCOUNTER 2022-11-07 17:52 | Emergency (ER) | payer BC ==
[2022-11-07 18:15] VITALS: BP 147/71; PULSE 80
== END 2022-11-07 20:48 | disposition home or self-care (01) ==
LOC: JD.ED 17:52
DX: T83.091A Other mechanical complication of indwelling urethral catheter, initial encounter (principal); Z88.1 Allergy status to other antibiotic agents; Z79.899 Other long term (current) drug therapy
CPT/HCPCS: 99283

== ENCOUNTER 2024-10-31 22:16 | Emergency (ER) | payer BC ==
[2024-10-31 22:25] VITALS: BP 115/96; PULSE 102
[2024-10-31 23:03] LABS: BASOPHILS ABSOLUTE AUTO 0.1 K/mm3 (0.0-0.2); BASOPHILS PERCENT AUTO 0.2 % (0.0-1.0); EOSINOPHILS PERCENT AUTO 0.1 % (0.0-6.0); HEMATOCRIT 41.6 % (37.0-47.0); HEMOGLOBIN 14.1 gm/dl (12.0-16.0); IMMATURE GRAN ABSOLUTE AUTO 0.12 K/mm3 (0.00-0.05); IMMATURE GRAN PERCENT AUTO 0.5 % (0.0-0.4); LYMPHOCYTES ABSOLUTE AUTO 1.3 K/mm3 (1.0-4.8); LYMPHOCYTES PERCENT AUTO 5.1 % (24.0-44.0); MEAN CORPUSCULAR HEMOGLOBIN 29.4 pg (28.0-32.0); MEAN CORPUSCULAR HGB CONC 33.9 g/dl (32.0-36.0); MEAN CORPUSCULAR VOLUME 86.7 fl (83.0-99.0); MEAN PLATELET VOLUME 9.8 fl (9.4-12.3); MONOCYTES ABSOLUTE AUTO 1.7 K/mm3 (0.0-0.8); MONOCYTES PERCENT AUTO 6.9 % (0.0-8.0); NEUTROPHILS ABSOLUTE AUTO 21.8 K/mm3 (1.8-7.7); NEUTROPHILS PERCENT AUTO 87.2 % (41.0-71.0); PLATELET COUNT,PLT 341 K/mm3 (150-400); WHITE BLOOD CELL COUNT,WBC 24.95 K/mm3 (3.9-11.3)
[2024-10-31] MEDS: Sodium Chloride 0.9% 1,000 ML IV ONE (23:11)
[2024-10-31] MEDS: Ondansetron 4 MG/2 ML SDV IVPUSH ONE (23:12)
[2024-10-31 23:26] LABS: APPEARANCE,URINE CLOUDY (Clear); BILIRUBIN,URINE 1+ (Negative); COLOR,URINE DARK YELLOW (Yellow); GLUCOSE,URINE NEGATIVE (Negative); KETONES,URINE 1+ (Negative); LEUKOCYTE ESTERASE,URINE 1+ (Negative); NITRITE,URINE POSITIVE (Negative); OCCULT BLOOD,URINE 3+ (Negative); PROTEIN,URINE 3+ (Negative); UROBILINOGEN,URINE >=8.0 (0.2-1.0)
[2024-10-31 23:31] LABS: A/G RATIO 0.8 (1-2); ALBUMIN 3.5 g/dl (3.4-5.0); ANION GAP 17.6 (5-15); BILIRUBIN TOTAL 0.8 mg/dL (0.2-1.0); EST CRCL DRUG DOSING (CG) 59.82 mL/min; POTASSIUM,K 3.6 mEq/L (3.5-5.1); PROTEIN TOTAL,TP 8.1 g/dl (6.4-8.2)
[2024-10-31] MEDS ORDERED: Naloxone 0.4 MG/ML SDV IVPUSH PRN (23:50)
[2024-10-31 23:59] LABS: BACTERIA,URINE MODERATE /hpf (FEW); EPITHELIAL CELLS,URINE NOT SEEN /hpf (0-5); MUCUS,URINE NOT SEEN /hpf (FEW); WBC CLUMPS,URINE FEW /hpf (NOT SEEN); WBC,URINE 50-75 /hpf (0-5)
[2024-11-01] MEDS: Levofloxacin/Dextrose 5%-Water 750 MG in Premix Bag 1 BAG IV ONE (00:22)
[2024-11-01] MEDS: Ketorolac 30 MG/ML SDV IVPUSH ONE (00:25)
[2024-11-01] MEDS: Morphine 4 MG/ML Syringe IVPUSH ONE (00:26)
[2024-11-01 00:32] LABS: SLIDE REVIEW ABNORMAL SMEAR
[2024-11-01] MEDS: Ondansetron 4 MG/2 ML SDV IVPUSH ONE (00:37)
== END 2024-11-01 01:16 | disposition home or self-care (01) ==
LOC: JD.ED 22:16
DX: N39.0 Urinary tract infection, site not specified (principal); J45.909 Unspecified asthma, uncomplicated; F17.210 Nicotine dependence, cigarettes, uncomplicated; Z88.8 Allergy status to other drugs, medicaments and biological substances; Z79.51 Long term (current) use of inhaled steroids; Z79.899 Other long term (current) drug therapy
CPT/HCPCS: 36415; 80053; 81001; 84703; 85025; 87086; 87088; 87186; 96361; 96365; 96375; 99284; J1885; J1956; J2270; J2405; J7030